=== PATIENT | female | born 1995 ===

== ENCOUNTER 2017-02-25 19:03 | Emergency (ER) | payer OTHER ==
[2017-02-25 19:16] VITALS: O2SAT 99
--- NOTE | 2017-02-25 20:34 | ED PDOC ---
HPI: General Adult Time Seen by Provider: 02/25/17 19:28 Chief Complaint (Nursing): Abdominal Pain Chief Complaint (Provider): Pelvic Pain History Per: Patient History/Exam Limitations: no limitations Onset/Duration Of Symptoms: Days (x7) Current Symptoms Are (Timing): Still Present Additional Complaint(s): Mel Arce is a 21 year old female that presents to the ED with a chief complaint of pelvic pain that she has been experiencing intermittently for the past week. Patient reports associated cramps, and has not taken any medication for her pain. She denies any vaginal discharge, bleeding, nausea, vomiting, diarrhea, or urinary symptoms. Of Note: Patient's LMP was on 12/22/16, but reports that she is irregular. Past Medical History Reviewed: Historical Data, Nursing Documentation, Vital Signs Vital Signs: Last Vital Signs Temp 99.3 F 02/25/17 19:12 Pulse 86 02/25/17 19:12 Resp 20 02/25/17 19:12 BP 122/56 L 02/25/17 19:12 Pulse Ox 99 02/25/17 20:41 - Medical History PMH: No Chronic Diseases - Surgical History Surgical History: No Surg Hx - Family History Family History: States: No Known Family Hx - Social History Current smoker - smoking cessation education provided: No Alcohol: None Drugs: Denies - Home Medications Home Medications: Ambulatory Orders Medication Instructions Recorded Ibuprofen [Motrin Tab] 600 mg PO Q8 PRN #60 tab 02/25/17 - Allergies Allergies/Adverse Reactions: Allergies Allergy/AdvReac Type Severity Reaction Status Date / Time No Known Allergies Allergy Verified 02/25/17 19:11 Review of Systems ROS Statement: Except As Marked, All Systems Reviewed And Found Negative Gastrointestinal: Negative for: Nausea, Vomiting, Diarrhea, Constipation Genitourinary Female: Positive for: Pelvic Pain, Other (Patient reports cramping.). Negative for: Dysuria, Frequency, Vaginal Discharge, Vaginal Bleeding Physical Exam - Reviewed Nursing Documentation Reviewed: Yes - Physical Exam Appears: Positive for: Well, No Acute Distress Head Exam: Positive for: ATRAUMATIC, NORMOCEPHALIC Skin: Positive for: Warm, Dry Gastrointestinal/Abdominal: Positive for: Soft, Tenderness (mild suprapubic ttp) . Negative for: Mass, Distended, Guarding, Rebound Back: Positive for: Normal Inspection, Vertebral Tenderness. Negative for: L CVA Tenderness, R CVA Tenderness Lymphatic: Negative for: Adenopathy, Inguinal Node Tenderness - Laboratory Results Urine POC: Negative Urine dip results: Negative for: Leukocyte Esterase, Blood, Nitrate, Ketones, Glucose, Bilirubin, Protein - ECG O2 Sat by Pulse Oximetry: 99 (RA) Pulse Ox Interpretation: Normal - Progress ED Course And Treament: EXAM: US Pelvis, Transvaginal CLINICAL HISTORY: 21 years old, female; Pain; Pelvic pain TECHNIQUE: Real-time transvaginal pelvic ultrasound (complete) with image documentation. Transvaginal imaging was used for better evaluation of the endometrium and adnexa. COMPARISON: No relevant prior studies available. FINDINGS: Uterus/cervix: Unremarkable. Normal endometrial stripe thickness. No myometrial mass. Right ovary: Unremarkable. No mass. Normal blood flow. Left ovary: Unremarkable. No mass. Normal blood flow. Free fluid: No free fluid. IMPRESSION: Normal pelvic ultrasound. Thank you for allowing us to participate in the care of your patient. Dictated and Authenticated by: Daniel Morris MD 02/25/2017 9:20 PM Eastern Time ([place] & [place]) Medical Decision Making Medical Decision Making: Impression: Pelvic Pain, ddx include Dysmenorrhea vs. Premenstrual Syndrome vs. Fibroids vs. Ovarian Cyst vs. UTI Plan: * Urine dip * Urine preg * Ibuprofen 600 mg PO * US Transvaginal * Reevaluation Scribe Attestation: Documented by Rani Salas, acting as a scribe for Janis Byrd MD. Provider Scribe Attestation: All medical record entries made by the Scribe were at my direction and personally dictated by me. I have reviewed the chart and agree that the record accurately reflects my personal performance of the history, physical exam, medical decision making, and the department course for this patient. I have also personally directed, reviewed, and agree with the discharge instructions and disposition. Disposition - Clinical Impression Clinical Impression: Amenorrhea, secondary, Pelvic pain - Disposition [facility] - [facility] Disposition: Routine/Home Disposition Time: 21:00 Condition: STABLE Prescriptions: Ibuprofen [Motrin Tab] 600 mg PO Q8 PRN #60 tab PRN Reason: pain Instructions: Amenorrhea (GEN), Pelvic Pain in Women (ED) Print Language: CHINESE
[2017-02-25 22:10] VITALS: BP 112/58; PULSE 76; RESP 18; TEMP 98.9
--- NOTE | 2017-02-26 09:57 | US ---
HISTORY: Pelvic pain COMPARISON: None available. TECHNIQUE: Transvaginal sonographic evaluation of the pelvis performed FINDINGS: UTERUS: Measures approximately 7.7 x 2.7 x 4.7 cm. Normal in size and appearance. No fibroid or other mass lesion seen. ENDOMETRIUM: Measures 0.8 cm in diameter. Unremarkable. CERVIX: No cervical abnormality identified. RIGHT OVARY: Measures approximately 3.7 x 2.6 x 2.7 cm. No solid mass. Normal flow. LEFT OVARY: Measures approximately 3.3 x 2.4 x 0.6 cm. No solid mass. Normal flow. FREE FLUID: No significant free fluid noted. OTHER FINDINGS: None. IMPRESSION: Unremarkable pelvic ultrasound
== END 2017-02-25 21:49 | disposition home or self-care (01) ==
LOC: H.ER 19:03
DX: N91.2 Amenorrhea, unspecified (principal)